=== PATIENT | male | born 1965 | race Caucasian/White ===

== ENCOUNTER 2019-05-26 11:12 | Inpatient (IN) | payer OTHER ==
[2019-05-26 12:30] VITALS: BMI 25.7
--- NOTE | 2019-05-26 13:40 | HP ---
COWS - Scale Resting Pulse: 0= [place] 80 or Below Sweatin= Chills/Flushing Restless Observation: 5= Unable to Sit Still Pupil Size: 0= Normal to Room Light Bone or Joint Aches: 2= Severe Diffuse Aches Runny Nose/ Eye Tearin= Nasal Congestion GI Upset > 30mins: 0= None Tremor Observation: 1= Tremor [place], Not Seen Yawning Observation: 0= None Anxiety or Irritability: 2=Irritable/Anxious Goose Flesh Skin: 0=Smooth Skin COWS Score: 12 CIWA Score - Admission Criteria OAS Guidelines: Admission for Medically Managed Detox: Requires at least one of the followin. CIWA greater than 12 2. Seizures within the past 24 hours 3. Delirium tremens within the past 24 hours 4. Hallucinations within the past 24 hours 5. Acute intervention needed for co occurring medical disorder 6. Acute intervention needed for co occurring psychiatric disorder 7. Severe withdrawal that cannot be handled at a lower level of care (continued vomiting, continued diarrhea, abnormal vital signs) requiring intravenous medication and/or fluids 8. Admission ROS [facility] Allergies/Adverse Reactions: Allergies Allergy/AdvReac Type Severity Reaction Status Date / Time Penicillins Allergy Severe Rash Verified 05/26/19 12:20 History of Present Illness: This report was requested by: Zehra London | Reference #: [id number] Others' Prescriptions Patient Name: Damion Mead Date: 1965 Address: [address] [place] [address] Sex: Male Rx Written Rx Dispensed Drug Quantity Days Supply Prescriber Name 05/09/2019 05/09/2019 zolpidem tartrate 10 mg tablet 30 30 Jason, Purificacion (Dnp) 05/09/2019 05/09/2019 alprazolam 2 mg tablet 90 30 Jason, Purificacion (Dnp) 04/06/2019 04/10/2019 zolpidem tartrate 10 mg tablet 30 30 Jason, Purificacion (Dnp) 04/06/2019 04/10/2019 alprazolam 2 mg tablet 90 30 Jason, Purificacion (Dnp) pt here requesting detox from heroin use , reports 2 bundles/day since age 13 , with intermittent periods of sobriety , denies MMTP participation , claims mtd in utox is from illicit " street " methadone use , latest used yesterday , current symptoms as above . Denies IVDU , denies OD . Claims he was referred to this facility by a friend . cocaine : 60 $/day denies IVDu tobacco - denies pmhx : denies PShx : denies PSych ; depression , denies Si / HI Exam Limitations: No Limitations - Ebola screening Have you traveled outside of the country in the last 21 days: No (N) Have you had contact with anyone from an Ebola affected area: No Do you have a fever: No - Review of Systems Constitutional: See HPI EENT: reports: Other (glasses) Respiratory: reports: No Symptoms reported Cardiac: reports: No Symptoms Reported GI: reports: See HPI : reports: No Symptoms Reported Musculoskeletal: reports: Back Pain Integumentary: reports: No Symptoms Reported Neuro: reports: Headache Endocrine: reports: No Symptoms Reported Psychiatric: reports: Orientated x3, Agitated, Anxious Patient History - Smoking Cessation Smoking history: Never smoked Have you smoked in the past 12 months: No - Substances abused Heroin Substance route: Inhalation Frequency: Daily Amount used: 2 bundle Age of first use: 13 Date of last use: 05/26/19 Cocaine Substance route: Inhalation Frequency: Daily Amount used: $60 Age of first use: 13 Date of last use: 05/25/19 Family Disease History - Family Disease History Family Disease History: Other: Father (d. ALzheimer's ), Mother (heart dz ) Admission Physical Exam S - Vital Signs Vital Signs: Vital Signs - 24 hr 05/26/19 12:25 Temperature 98.1 F Pulse Rate 66 Respiratory 16 Rate Blood Pressure 106/72 - Physical General Appearance: Yes: Mild Distress, Moderate Distress, Anxious HEENTM: Yes: Other (poor dentition , many missing teeth) Respiratory: Yes: Chest Non-Tender, Lungs Clear, Normal Breath Sounds, No Respiratory Distress, No Accessory Muscle Use Neck: Yes: No masses,lesions,Nodules, Trachea in good position Cardiology: Yes: Regular Rhythm, Regular Rate, S1, S2 Abdominal: Yes: Non Tender, Soft Back: Yes: Normal Inspection Musculoskeletal: Yes: Gait Steady Extremities: Yes: Non-Tender Neurological: Yes: Fully Oriented, Alert, Motor Strength 5/5 Integumentary: Yes: Warm - Diagnostic (1) Opioid use disorder Current Visit: Yes Status: Acute (2) Cocaine use disorder Current Visit: Yes Status: Acute Breathalyzer - Breathalyzer Breathalyzer: 0 Urine Drug Screen - Test Device Lot number: [id number] Expiration date: 02/26/21 - Control Is test valid?: Yes - Results Drug screen NEGATIVE: No Urine drug screen results: DESTINEE-Cocaine, MOP-Opiates, OXY-Oxycodone, MTD- Methadone Inpatient Rehab Admission - Rehab Decision to Admit Inpatient rehab admission?: No
[2019-05-26] MEDS ORDERED: MENTHOL/PHENOL 1 EACH UD MM PRN (13:45)
[2019-05-26] MEDS ORDERED: BISMUTH SUBSALICYLATE 524 MG/30 ML UD PO PRN (13:45)
[2019-05-26] MEDS ORDERED: IBUPROFEN 400 MG TABLET (FP) PO PRN (13:45)
[2019-05-26] MEDS ORDERED: MAG HYDROX/AL HYDROX/SIMETH 30 ML UNIT-DOSE CUP PO PRN (13:45)
[2019-05-26] MEDS ORDERED: hydrOXYzine PAMOATE 25 MG CAPSULE (FP) PO PRN (13:45)
[2019-05-26] MEDS ORDERED: MAGNESIUM CITRATE 300 ML BOTTLE PO PRN (13:45)
[2019-05-26] MEDS ORDERED: ACETAMINOPHEN 325 MG TABLET (FP) PO PRN ×2 (13:45)
[2019-05-26] MEDS ORDERED: MAGNESIUM HYDROX 2400MG/30ML ORAL SUSPENSION 30 ML CUP PO PRN (13:45)
[2019-05-26] MEDS ORDERED: cloNIDine HCL 0.1 MG TABLET PO PRN (13:48)
[2019-05-26] MEDS ORDERED: METHADONE HCL 10 MG TABLET (FOR DETOX USE ONLY) PO ONE (15:00)
--- NOTE | 2019-05-26 21:01 | EKG ---
Test Reason : Blood Pressure : / mmHG Vent. Rate : 060 BPM Atrial Rate : 060 BPM P-R Int : 164 ms QRS Dur : 076 ms QT Int : 400 ms P-R-T Axes : 034 028 014 degrees QTc Int : 400 ms NORMAL SINUS RHYTHM NORMAL ECG NO PREVIOUS ECGS AVAILABLE Confirmed by REBEKAH GASTON MD ([id number]) on 05/26/2019 9:01:20 PM Referred By: Confirmed By:REBEKAH GASTON MD
[2019-05-26] MEDS: THIAMINE HCL 100 MG TABLET (FP) PO SCH (22:58)
[2019-05-26] MEDS: MELATONIN 5 MG TABLETS PO PRN (22:58)
[2019-05-27] MEDS ORDERED: METHADONE HCL 10 MG TABLET (FOR DETOX USE ONLY) ONE (08:41)
[2019-05-27] MEDS ORDERED: METHADONE HCL 5 MG TABLET (FOR DETOX USE ONLY) ONE (08:41)
[2019-05-27] MEDS ORDERED: METHADONE (DETOX) 20 MG, METHADONE (DETOX) 5 MG PO ONE (10:00)
[2019-05-27] MEDS: PRENATAL VITAMINS W/ FOLIC ACID TABLET (FP) PO SCH (10:32)
[2019-05-27 12:21] LABS: HEMATOCRIT 34.8 % (35.4-49); HEMOGLOBIN 11.9 GM/dL (11.7-16.9); MCH 30.2 pg (25.7-33.7); MCHC 34.3 g/dl (32.0-35.9); MEAN CELL VOLUME 88.1 fl (80-96); MEAN PLT VOLUME 8.9 fl (7.5-11.1); PLATELET COUNT 273 K/MM3 (134-434); RBC 3.95 M/mm3 (4.00-5.60); RDW 14.4 % (11.9-15.9); WHITE BLOOD COUNT 5.3 K/mm3 (4.0-10.0)
[2019-05-27 13:01] LABS: BILIRUBIN,TOTAL 0.6 mg/dL (0.2-1); BLOOD UREA NITROGEN 14.8 mg/dL (7-18); CALCIUM 8.8 mg/dL (8.5-10.1); CREATININE 0.9 mg/dL (0.55-1.3); POTASSIUM 4.2 mmol/L (3.5-5.1); TOT PROT 6.5 g/dl (6.4-8.2)
--- NOTE | 2019-05-27 16:16 | PN ---
BHS COWS - Scale Resting Pulse: 0= [place] 80 or Below Sweatin= Chills/Flushing Restless Observation: 0= Sits Still Pupil Size: 0= Normal to Room Light Bone or Joint Aches: 2= Severe Diffuse Aches Runny Nose/ Eye Tearin= Nasal Congestion GI Upset > 30mins: 0= None Tremor Observation of Outstretched Hands: 0= None Yawning Observation: 1= 1-2x During Session Anxiety or Irritability: 2=Irritable/Anxious Goose Flesh Skin: 3=Piloerection COWS Score: 10 BHS Progress Note (SOAP) Subjective: Anxious, Body Aches, Sweating, Nasal Congestion. Patient reports That Current withdrawal Detox Symptoms in Are Beginning to Subside in Severity. Objective: PATIENT A & O X 3, OBSERVED AMBULATING ON UNIT UNASSISTED. IN NO ACUTE DISTRESS. 05/27/19 16:17 Vital Signs Temperature 98.3 F 05/27/19 13:26 Pulse Rate 62 05/27/19 13:26 Respiratory Rate 16 05/27/19 13:26 Blood Pressure 108/63 05/27/19 13:26 O2 Sat by Pulse Oximetry (%) Laboratory Tests 05/27/19 05/27/19 05/27/19 07:00 07:00 07:00 WBC 5.3 RBC 3.95 L Hgb 11.9 Hct 34.8 L MCV 88.1 MCH 30.2 MCHC 34.3 RDW 14.4 Plt Count 273 MPV 8.9 Sodium 139 Potassium 4.2 Chloride 102 Carbon Dioxide 32 Anion Gap 5 L BUN 14.8 Creatinine 0.9 Est GFR (CKD-EPI)AfAm 111.83 Est GFR (CKD-EPI)NonAf 96.49 Random Glucose 87 Calcium 8.8 Total Bilirubin 0.6 AST 16 ALT 18 Alkaline Phosphatase 88 Total Protein 6.5 Albumin 3.0 L RPR Titer Nonreactive LABS NOTED. RESULTS OF QFT /TB TEST PENDING. 05/27/19 16:18 Assessment: 05/27/19 16:18 WITHDRAWAL SYMPTOMS. ANEMIA. 05/27/19 16:19 Plan: CONTINUE DETOX. PATIENT IS CURRENTLY RECEIVING DAILY MVI CONTAINING B VITAMINS AND IRON WHILE ADMITTED FOR DETOX.
[2019-05-27] MEDS: THIAMINE HCL 100 MG TABLET (FP) PO SCH (22:28)
[2019-05-27] MEDS: MELATONIN 5 MG TABLETS PO PRN (22:29)
[2019-05-28] MEDS ORDERED: METHADONE HCL 10 MG TABLET (FOR DETOX USE ONLY) PO ONE (10:00)
[2019-05-28] MEDS: PRENATAL VITAMINS W/ FOLIC ACID TABLET (FP) PO SCH (10:20)
--- NOTE | 2019-05-28 11:52 | PN ---
S COWS - Scale Resting Pulse: 0= [place] 80 or Below Sweatin= Chills/Flushing Restless Observation: 1= Difficult to Sit Still Pupil Size: 1= Pupils >than Normal Bone or Joint Aches: 2= Severe Diffuse Aches Runny Nose/ Eye Tearin= Nasal Congestion GI Upset > 30mins: 1= Stomach Cramp Tremor Observation of Outstretched Hands: 1= Tremor [place], Not Seen Yawning Observation: 1= 1-2x During Session Anxiety or Irritability: 2=Irritable/Anxious Goose Flesh Skin: 0=Smooth Skin COWS Score: 11 S Progress Note (SOAP) Subjective: alert,irritable,anxious,interrupted sleep,pain in the body Objective: 05/28/19 11:51 Vital Signs Temperature 98.1 F 05/28/19 09:16 Pulse Rate 65 05/28/19 09:16 Respiratory Rate 18 05/28/19 09:16 Blood Pressure 112/61 05/28/19 09:16 O2 Sat by Pulse Oximetry (%) Laboratory Last Values WBC 5.3 K/mm3 (4.0-10.0) 05/27/19 07:00 RBC 3.95 M/mm3 (4.00-5.60) L 05/27/19 07:00 Hgb 11.9 GM/dL (11.7-16.9) 05/27/19 07:00 Hct 34.8 % (35.4-49) L 05/27/19 07:00 MCV 88.1 fl (80-96) 05/27/19 07:00 MCH 30.2 pg (25.7-33.7) 05/27/19 07:00 MCHC 34.3 g/dl (32.0-35.9) 05/27/19 07:00 RDW 14.4 % (11.9-15.9) 05/27/19 07:00 Plt Count 273 K/MM3 (134-434) 05/27/19 07:00 MPV 8.9 fl (7.5-11.1) 05/27/19 07:00 Sodium 139 mmol/L (136-145) 05/27/19 07:00 Potassium 4.2 mmol/L (3.5-5.1) 05/27/19 07:00 Chloride 102 mmol/L (98-107) 05/27/19 07:00 Carbon Dioxide 32 mmol/L (21-32) 05/27/19 07:00 Anion Gap 5 MMOL/L (8-16) L 05/27/19 07:00 BUN 14.8 mg/dL (7-18) 05/27/19 07:00 Creatinine 0.9 mg/dL (0.55-1.3) 05/27/19 07:00 Est GFR (CKD-EPI)AfAm 111.83 05/27/19 07:00 Est GFR (CKD-EPI)NonAf 96.49 05/27/19 07:00 Random Glucose 87 mg/dL (74-106) 05/27/19 07:00 Calcium 8.8 mg/dL (8.5-10.1) 05/27/19 07:00 Total Bilirubin 0.6 mg/dL (0.2-1) 05/27/19 07:00 AST 16 U/L (15-37) 05/27/19 07:00 ALT 18 U/L (13-61) 05/27/19 07:00 Alkaline Phosphatase 88 U/L (45-117) 05/27/19 07:00 Total Protein 6.5 g/dl (6.4-8.2) 05/27/19 07:00 Albumin 3.0 g/dl (3.4-5.0) L 05/27/19 07:00 RPR Titer Nonreactive (NONREACTIVE) 05/27/19 07:00 Assessment: 05/28/19 11:51 withdrawal symptom Plan: continue detox methadone regimen
[2019-05-28] MEDS: MELATONIN 5 MG TABLETS PO PRN (22:16)
[2019-05-28] MEDS: THIAMINE HCL 100 MG TABLET (FP) PO SCH (22:16)
[2019-05-29] MEDS ORDERED: METHADONE HCL 5 MG TABLET (FOR DETOX USE ONLY) ONE (08:41)
[2019-05-29] MEDS ORDERED: METHADONE HCL 10 MG TABLET (FOR DETOX USE ONLY) ONE (08:41)
[2019-05-29] MEDS: PRENATAL VITAMINS W/ FOLIC ACID TABLET (FP) PO SCH (09:45)
[2019-05-29] MEDS ORDERED: METHADONE (DETOX) 10 MG, METHADONE (DETOX) 5 MG PO ONE (10:00)
--- NOTE | 2019-05-29 13:35 | PN ---
BHS CIWA - CIWA Score Nausea/Vomitin-Mild Nausea/No Vomiting Muscle Tremors: 2 Anxiety: 1-Mildly Anxious Agitation: 1-Slight > Activity Paroxysmal Sweats: 1-Minimal Palms Moist Orientation: 0-Oriented Tacttile Disturbances: 0-None Auditory Disturbances: 0-None Visual Disturbances: 0-None Headache: 1-Very Mild CIWA-Ar Total Score: 7 BHS Progress Note (SOAP) Subjective: pt here for heroin detox- doing well with protocol O: Vital Signs - 24 hr 05/28/19 05/28/19 05/28/19 13:59 17:10 20:42 Temperature 98.1 F 96.7 F L 98.1 F Pulse Rate 72 66 62 Respiratory 18 18 16 Rate Blood Pressure 130/60 100/60 102/61 05/29/19 05/29/19 05/29/19 00:30 03:30 07:53 Temperature 98.2 F Pulse Rate 66 Respiratory 18 18 17 Rate Blood Pressure 103/58 L 05/29/19 05/29/19 09:27 13:16 Temperature 98.6 F 98.2 F Pulse Rate 68 65 Respiratory 18 18 Rate Blood Pressure 103/56 L 114/57 L Laboratory Tests 05/27/19 05/27/19 05/27/19 07:00 07:00 07:00 WBC 5.3 RBC 3.95 L Hgb 11.9 Hct 34.8 L MCV 88.1 MCH 30.2 MCHC 34.3 RDW 14.4 Plt Count 273 MPV 8.9 Sodium 139 Potassium 4.2 Chloride 102 Carbon Dioxide 32 Anion Gap 5 L BUN 14.8 Creatinine 0.9 Est GFR (CKD-EPI)AfAm 111.83 Est GFR (CKD-EPI)NonAf 96.49 Random Glucose 87 Calcium 8.8 Total Bilirubin 0.6 AST 16 ALT 18 Alkaline Phosphatase 88 Total Protein 6.5 Albumin 3.0 L RPR Titer Nonreactive low albumin, mild anemia a/p: continue heroin detox- consider fdc MAT with suboxone/methadone
[2019-05-29] MEDS: MELATONIN 5 MG TABLETS PO PRN (22:15)
[2019-05-29] MEDS: THIAMINE HCL 100 MG TABLET (FP) PO SCH (22:15)
[2019-05-30 09:42] VITALS: BP 106/55; PULSE 68; TEMP 97.8
[2019-05-30] MEDS ORDERED: METHADONE HCL 10 MG TABLET (FOR DETOX USE ONLY) PO ONE (10:00)
[2019-05-30] MEDS: PRENATAL VITAMINS W/ FOLIC ACID TABLET (FP) PO SCH (10:22)
--- NOTE | 2019-05-30 15:33 | PN ---
BHS COWS - Scale Resting Pulse: 0= [place] 80 or Below Sweatin= No chills or Flushing Restless Observation: 0= Sits Still Pupil Size: 0= Normal to Room Light Bone or Joint Aches: 0= None Runny Nose/ Eye Tearin= None GI Upset > 30mins: 0= None Tremor Observation of Outstretched Hands: 0= None Yawning Observation: 1= 1-2x During Session Anxiety or Irritability: 2=Irritable/Anxious Goose Flesh Skin: 0=Smooth Skin COWS Score: 3 BHS Progress Note (SOAP) Subjective: Fatigue. Patient reports that Fatigue is mild and that he feels well overall. Objective: PATIENT A & O X 3. IN NO ACUTE DISTRESS. 05/30/19 15:30 Vital Signs Temperature 97.8 F 05/30/19 09:41 Pulse Rate 68 05/30/19 09:41 Respiratory Rate 18 05/30/19 09:41 Blood Pressure 106/55 L 05/30/19 09:41 O2 Sat by Pulse Oximetry (%) Laboratory Tests 05/27/19 05/27/19 05/27/19 07:00 07:00 07:00 WBC 5.3 RBC 3.95 L Hgb 11.9 Hct 34.8 L MCV 88.1 MCH 30.2 MCHC 34.3 RDW 14.4 Plt Count 273 MPV 8.9 Sodium 139 Potassium 4.2 Chloride 102 Carbon Dioxide 32 Anion Gap 5 L BUN 14.8 Creatinine 0.9 Est GFR (CKD-EPI)AfAm 111.83 Est GFR (CKD-EPI)NonAf 96.49 Random Glucose 87 Calcium 8.8 Total Bilirubin 0.6 AST 16 ALT 18 Alkaline Phosphatase 88 Total Protein 6.5 Albumin 3.0 L RPR Titer Nonreactive TB (QFT) Incubation TB Test (QFT) Nil TB Test (QFT) Mitogen TB Test (QFT) Antigen TB Test (QFT) TB Positive Criteria 05/27/19 07:00 WBC RBC Hgb Hct MCV MCH MCHC RDW Plt Count MPV Sodium Potassium Chloride Carbon Dioxide Anion Gap BUN Creatinine Est GFR (CKD-EPI)AfAm Est GFR (CKD-EPI)NonAf Random Glucose Calcium Total Bilirubin AST ALT Alkaline Phosphatase Total Protein Albumin RPR Titer TB (QFT) Incubation TB Test (QFT) Nil 0.10 TB Test (QFT) Mitogen >10.00 TB Test (QFT) Antigen 0.14 TB Test (QFT) Negative TB Positive Criteria LABS NOTED. Assessment: 05/30/19 15:31 COMPLETION OF DETOX REGIMEN. Plan: SINCE PATIENT REPORTS THAT CURRENT WITHDRAWAL / DETOX SYMPTOMS ARE MINIMAL IN DEGREE AND THAT HE FEELS WELL OVERALL, AT PATIENTS REQUEST, HE WAS GRANTED AN EARLY DISCHARGE FROM DETOX UNIT TODAY SO THAT HE MAY PROCEED ON TO AFTERCARE PLAN - [facility] [place]
--- NOTE | 2019-05-30 15:37 | DS ---
[facility] Detox Discharge Summary Admission Date: 05/26/19 Discharge Date: 05/30/19 - History Present History: Cocaine Dependence, Opioid Dependence Additional Comments: PATIENT REPORTS THAT CURRENT WITHDRAWAL / DETOX SYMPTOMS ARE MINIMAL IN DEGREE AND THAT HE FEELS WELL OVERALL AT TIME OF DISCHARGE FROM DETOX UNIT. [facility]. PATIENT WAS DISCHARGED FROM DETOX UNIT TO BE TAKEN OVER TO REHAB UNIT IN STABLE MEDICAL CONDITION. Pertinent Past History: Anemia. - Physical Exam Results Vital Signs: Vital Signs Temperature 97.8 F 05/30/19 09:41 Pulse Rate 68 05/30/19 09:41 Respiratory Rate 18 05/30/19 09:41 Blood Pressure 106/55 L 05/30/19 09:41 O2 Sat by Pulse Oximetry (%) Pertinent Admission Physical Exam Findings: WITHDRAWAL SYMPTOMS. Laboratory Tests 05/27/19 05/27/19 05/27/19 07:00 07:00 07:00 WBC 5.3 RBC 3.95 L Hgb 11.9 Hct 34.8 L MCV 88.1 MCH 30.2 MCHC 34.3 RDW 14.4 Plt Count 273 MPV 8.9 Sodium 139 Potassium 4.2 Chloride 102 Carbon Dioxide 32 Anion Gap 5 L BUN 14.8 Creatinine 0.9 Est GFR (CKD-EPI)AfAm 111.83 Est GFR (CKD-EPI)NonAf 96.49 Random Glucose 87 Calcium 8.8 Total Bilirubin 0.6 AST 16 ALT 18 Alkaline Phosphatase 88 Total Protein 6.5 Albumin 3.0 L RPR Titer Nonreactive TB (QFT) Incubation TB Test (QFT) Nil TB Test (QFT) Mitogen TB Test (QFT) Antigen TB Test (QFT) TB Positive Criteria 05/27/19 07:00 WBC RBC Hgb Hct MCV MCH MCHC RDW Plt Count MPV Sodium Potassium Chloride Carbon Dioxide Anion Gap BUN Creatinine Est GFR (CKD-EPI)AfAm Est GFR (CKD-EPI)NonAf Random Glucose Calcium Total Bilirubin AST ALT Alkaline Phosphatase Total Protein Albumin RPR Titer TB (QFT) Incubation TB Test (QFT) Nil 0.10 TB Test (QFT) Mitogen >10.00 TB Test (QFT) Antigen 0.14 TB Test (QFT) Negative TB Positive Criteria LABS NOTED. - Treatment Hospital Course: Detox Protocol Followed, Detoxed Safely, Responded well, Discharged Condition Good, Rehab Referral Accepted Patient has Accepted a Rehab Referral to: [facility] ([place], [place]). - Diagnosis (1) Anemia Status: Acute Qualifiers: Anemia type: unspecified type Qualified Code(s): D64.9 - Anemia, unspecified (2) Cocaine use disorder Status: Acute (3) Opioid use disorder Status: Acute - AMA Did Patient Leave Against Medical Advice: No
[2019-05-31] MEDS ORDERED: METHADONE HCL 5 MG TABLET (FOR DETOX USE ONLY) PO ONE (06:00)
== END 2019-05-30 14:13 | disposition other institution (70) | DRG 773 ==
LOC: YASAS 11:12 → Y6N 14:12
PROVIDERS: ADMIT Surgery; ATTEND Surgery
PROC: HZ2ZZZZ Detoxification Services for Substance Abuse Treatment (ICD-10-PCS; principal; 2019-05-26)
DX: F11.23 Opioid dependence with withdrawal (principal); F14.20 Cocaine dependence, uncomplicated; D64.9 Anemia, unspecified; Z88.0 Allergy status to penicillin
CPT/HCPCS: 36415; 80053; 85027; 86480; 86593; 93005; 93010

== ENCOUNTER 2019-05-30 13:32 | Inpatient (IN) | payer OTHER | END 2019-06-02 21:20 | disposition left against medical advice (07) | LOC: YASAS 13:32 → Y3W 13:40 ==

== ENCOUNTER 2024-05-27 16:33 | Inpatient (IN) | payer OTHER ==
[2024-05-27 17:07] VITALS: BMI 23.6
[2024-05-27] MEDS ORDERED: MAGNESIUM HYDROX 2400MG/30ML ORAL SUSPENSION 30 ML CUP PO PRN (18:10)
[2024-05-27] MEDS ORDERED: NALOXONE (NARCAN) HCL 4 MG/0.1 ML SPRAY NS PRN (18:10)
[2024-05-27] MEDS ORDERED: IBUPROFEN 400 MG TABLET (FP) PO PRN (18:10)
[2024-05-27] MEDS ORDERED: POLYETHYLENE GLYCOL (HEALTHYLAX) 3350 17 GM PACKET PO PRN (18:10)
[2024-05-27] MEDS ORDERED: LOPERAMIDE HCL 2 MG CAPSULE PO PRN (18:10)
[2024-05-27] MEDS ORDERED: DICYCLOMINE HCL 10 MG CAPSULE PO PRN (18:10)
[2024-05-27] MEDS ORDERED: BENZONATATE 200 MG CAPSULE PO PRN (18:10)
[2024-05-27] MEDS ORDERED: BENZOCAINE/MENTHOL (CHLORASEPTIC ) LOZENGE MM PRN (18:10)
[2024-05-27] MEDS ORDERED: MAG HYDROX/AL HYDROX/SIMETH 30 ML UNIT-DOSE CUP PO PRN (18:10)
[2024-05-27] MEDS ORDERED: P-EPHED 60MG/TRIPROLIDI 2.5MG TABLET PO PRN (18:10)
[2024-05-27] MEDS ORDERED: NALOXONE HCL 0.4 MG/ML VIAL IM PRN (18:10)
[2024-05-27] MEDS ORDERED: BISMUTH SUBSALICYLATE 524 MG/30 ML PO PRN (18:10)
[2024-05-27] MEDS ORDERED: ACETAMINOPHEN 325 MG TABLET (FP) PO PRN (18:10)
[2024-05-27] MEDS ORDERED: guaiFENesin 600 MG TABLET.ER (FP) PO PRN (18:10)
[2024-05-27] MEDS ORDERED: methaDONE HCL 10 MG TABLET (FOR DETOX USE ONLY) ONE (18:44)
[2024-05-27] MEDS: methaDONE HCL 10 MG TABLET (FOR DETOX USE ONLY) PO ONE (18:48)
[2024-05-27] MEDS: cloNIDine HCL 0.1 MG TABLET PO PRN (22:25)
[2024-05-27] MEDS: THIAMINE 100 MG TABLET PO SCH (22:25)
[2024-05-27] MEDS: MELATONIN 5 MG TABLETS PO SCH (22:25)
[2024-05-28] MEDS: PRENATAL VITAMINS W/ FOLIC ACID TABLET (FP) PO SCH (10:11)
[2024-05-28] MEDS: ONDANSETRON *ODT* 4 MG TABLET SL PRN (10:11)
[2024-05-28 11:53] LABS: HEMATOCRIT 30.5 % (35.4-49); HEMOGLOBIN 10.4 GM/dL (11.7-16.9); MCH 30.4 pg (25.7-33.7); MCHC 33.9 g/dl (32.0-35.9); MEAN CELL VOLUME 89.8 fl (80-96); MEAN PLT VOLUME 9.1 fl (7.5-11.1); PLATELET COUNT 192 10^3/uL (134-434); RDW 14.7 % (11.9-15.9); WHITE BLOOD COUNT 4.7 K/mm3 (4.0-10.0)
[2024-05-28 12:17] LABS: CHLORIDE 103 mmol/L (98-107); SODIUM 139 mmol/L (136-145)
[2024-05-28 12:45] LABS: ALBUMIN 2.8 g/dl (3.4-5.0); ANION GAP 8 mmol/L (4-13); BLOOD UREA NITROGEN 20.2 mg/dL (7-18); CALCIUM 8.5 mg/dL (8.5-10.1); CO2 28 mmol/L (21-32)
[2024-05-28 12:46] LABS: GLUCOSE,RANDOM 106 mg/dL (74-106)
[2024-05-28 12:48] LABS: CREATININE 0.9 mg/dL (0.55-1.3); SGOT/AST 35 U/L (15-37); SGPT/ALT 62 U/L (13-61)
[2024-05-28 12:50] LABS: BILIRUBIN,TOTAL 0.6 mg/dL (0.2-1)
[2024-05-28 12:51] LABS: ALK PHOS 68 U/L (45-117)
[2024-05-28] MEDS: IBUPROFEN 600 MG TABLET (FP) PO PRN (21:53)
[2024-05-29] MEDS: METHOCARBAMOL 500 MG TABLET PO PRN (09:44)
[2024-05-29] MEDS: methaDONE HCL 10 MG TABLET (FOR DETOX USE ONLY) PO ONE (09:45)
[2024-05-29] MEDS: QUEtiapine FUMARATE 50 MG TABLET PO SCH (21:43)
[2024-05-31] MEDS: methaDONE HCL 10 MG TABLET (FOR DETOX USE ONLY) PO ONE (10:18)
[2024-06-01 06:21] VITALS: RESP 17
[2024-06-01 12:43] VITALS: BP 109/64; PULSE 86; TEMP 97.1
== END 2024-06-01 12:56 | disposition home or self-care (01) | DRG 773 ==
LOC: YASAS 16:33 → Y3N 18:28
PROVIDERS: ADMIT Allergy & Immunology; ATTEND Surgery
PROC: HZ2ZZZZ Detoxification Services for Substance Abuse Treatment (ICD-10-PCS; principal; 2024-05-27)
DX: F11.23 Opioid dependence with withdrawal (principal); F14.20 Cocaine dependence, uncomplicated; F19.94 Other psychoactive substance use, unspecified with psychoactive substance-induced mood disorder; D64.9 Anemia, unspecified; G47.00 Insomnia, unspecified; Z88.0 Allergy status to penicillin; Z86.69 Personal history of other diseases of the nervous system and sense organs; Z56.0 Unemployment, unspecified; Z59.00 Homelessness unspecified
CPT/HCPCS: 36415; 80053; 80305; 80307; 85027; 86780; 93005; 93010; Q0162